=== PATIENT | male | born 1985 | race Two or more races ===

== ENCOUNTER 2020-08-16 19:55 | Emergency (ER) | payer MEDICAID ==
[~2020-08-16] VITALS: Ht 170.2 cm; Wt 102.3 kg
[2020-08-16] MEDS ORDERED: TRAZ-252 PO (20:46)
[2020-08-16] MEDS ORDERED: CITA10TA99 PO (20:46)
[2020-08-16] MEDS ORDERED: LORazepam 2 MG TABLET PO ONE (21:00)
[2020-08-16 22:15] VITALS: BP 126/71
== END 2020-08-16 22:15 | disposition home or self-care (01) ==
LOC: EMS 19:59
DX: F41.9 Anxiety disorder, unspecified (principal); F15.10 Other stimulant abuse, uncomplicated; F25.9 Schizoaffective disorder, unspecified; F17.210 Nicotine dependence, cigarettes, uncomplicated
CPT/HCPCS: 99283